=== PATIENT | male | born 1945 | race American Indian/Alaskan Native ===

== ENCOUNTER 2017-02-10 08:09 | Outpatient (CLI) | payer MEDICARE ==
--- NOTE | 2017-02-10 13:56 | Nuclear Medicine Report ---
Whole body bone scan: Abnormal alkaline phosphatase. Following injection of radionuclide imaging at 3 hours demonstrates bilateral renal uptake with good bone to background ratio. There is increased uptake in the right hemipelvis predominantly affecting the sacrum and ischium. Scattered areas of increased uptake are also identified in both knees pain somewhat worse on the left. Mild focal increased uptake noted in the right a.c. joint and over the left lateral humerus head. Some focal areas of increased uptake also noted in both hands and feet. A CT scan 2011 demonstrated pagetoid changes in the right hemipelvis. Impression: 1. 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 2. Scattered areas of increased joint activity most likely related to degenerative change.
== END 2017-02-10 08:10 | disposition home or self-care (01) ==
LOC: NM 08:09
PROVIDERS: ATTEND Internal Medicine
DX: R74.8 Abnormal levels of other serum enzymes (principal)
CPT/HCPCS: 78306; A9503